=== PATIENT | female | born 1960 | race African-American/Black ===

== ENCOUNTER 2016-12-18 10:41 | Emergency (ER) | payer MEDICARE, MEDICAID ==
[2016-12-18] MEDS ORDERED: Ketorolac INJ* 60 MG/2 ML VIAL IM ONE (12:00)
[2016-12-18] MEDS ORDERED: Ketorolac INJ* 30 MG/ML 1 ML VIAL IV PUSH ONE (12:17)
[2016-12-18 12:44] LABS: Hematocrit 34 % (35-47); Hemoglobin 10.9 g/dl (12.0-16.0); Mean Corpuscular HGB Conc 33 g/dl (31-36); Mean Corpuscular Hemoglobin 21 pg (27-31); Mean Platelet Volume 9 um3 (7.4-10.4); Red Cell Distribution Width 15 % (10.5-15); White Blood Count 9.5 10^3/ul (3.5-10.8)
[2016-12-18 12:49] LABS: Comments Flag Yes
[2016-12-18 12:50] LABS: Mean Corpuscular Volume 64 fL (80-97)
[2016-12-18 13:00] LABS: Albumin 3.8 g/dL (3.2-5.2); BUN/Creatinine Ratio 16.9 (8-20); C Reactive Protein 18.52 mg/L (< 5.00); Calcium 8.9 mg/dL (8.6-10.3); EGFR African American 91.5 (>60); EGFR Non-African American 71.1 (>60); Magnesium 2.1 mg/dL (1.9-2.7); Potassium 3.4 mmol/L (3.5-5.0); Total Bilirubin 0.4 mg/dL (0.2-1.0); Total Protein 6.8 g/dL (6.4-8.9)
--- NOTE | 2016-12-18 13:11 | RAD ---
INDICATION: Right knee pain and swelling. TECHNIQUE: 4 views of the right knee were obtained. FINDINGS: The bones are normal alignment. No acute fracture is seen. There is a moderate joint effusion present. There is moderate to severe osteoarthritic change in the patellofemoral and lateral compartments. In addition, there are several calcific densities which project posterior to the distal femur suspicious for loose bodies. IMPRESSION: 1. JOINT EFFUSION. 2. MODERATE TO SEVERE OSTEOARTHRITIC CHANGE. 3. PROBABLE LOOSE BODIES.
--- NOTE | 2016-12-18 13:13 | RAD ---
INDICATION: Right thigh pain. TECHNIQUE: 2 views of the right femur were obtained. FINDINGS: The bones are in normal alignment. No fracture is seen. There is moderate osteoarthritic change in the hip and moderate to severe osteoarthritic change in the knee. There is also joint effusion within the knee. IMPRESSION: 1. NO EVIDENCE FOR FRACTURE. 2. MODERATE TO SEVERE OSTEOARTHRITIC CHANGE IN THE HIP AND KNEE.
[2016-12-18 14:03] VITALS: BP 96/67
--- NOTE | 2016-12-19 18:47 | ED ---
Lower Extremity - HPI Summary HPI Summary: Pt here w/ Rt knee pain and swelling - states she had a cramp in her thigh about 1 week ago and the pain from her thigh moved into knee and upper calf - getting worse ever since. Denies h/o knee issues. Has tried heat, ice, ibuprofen yesterday w/ minimal relief. Worse w/ full knee extension and flexion past 5 degrees. Denies trauma, injury, fever, chills, redness, streaking, numbness, tingling, weakness. No h/o gout. - History of Current Complaint Chief Complaint: EDExtremityLower Stated Complaint: RT LEG PAIN/1 WEEK Time Seen by Provider: 12/18/16 11:37 Hx Obtained From: Patient Pain Intensity: 11 - Allergies/Home Medications Allergies/Adverse Reactions: Allergies Allergy/AdvReac Type Severity Reaction Status Date / Time Penicillins Allergy Rash Verified 12/18/16 10:50 PMH/Surg Hx/FS Hx/Imm Hx Previously Healthy: Yes Endocrine/Hematology History: Denies: Hx Anticoagulant Therapy, Hx Blood Disorders, Hx Diabetes, Autoimmune Disease Cardiovascular History: Reports: Hx Hypertension Denies: Hx Congestive Heart Failure GI History: Reports: Hx Gall Bladder Disease, Other GI Disorders - cholecystitis , recent diverticulitis History: Denies: Hx Renal Disease Musculoskeletal History: Reports: Hx Arthritis Sensory History: Reports: Hx Contacts or Glasses Opthamlomology History: Reports: Hx Contacts or Glasses Neurological History: Reports: Hx Headaches - Surgical History Surgery Procedure, Year, and Place: CYST FROM LT ARM REMOVED /CYST VAGINAL REGION,Open Cholecystectomy 08/29/14 ([facility]), Fusion L4-5 disc [facility] Hx Anesthesia Reactions: No Infectious Disease History: No Infectious Disease History: Denies: Traveled Outside the [place] in Last 30 Days - Family History Known Family History: Positive: Hypertension - Social History Alcohol Use: None Hx Substance Use: No Substance Use Type: Reports: None Smoking Status (MU): Current Every Day Smoker Type: Cigarettes Amount Used/How Often: 3 cigarettes/day Have You Smoked in the Last Year: Yes Review of Systems Constitutional: Negative Negative: Fever, Chills Negative: Photophobia, Blurred Vision, Diplopia, Drainage, Erythema Negative: Chest Pain Negative: Shortness Of Breath Negative: Vomiting, Nausea Positive: no symptoms reported. Negative: dysuria Musculoskeletal: Other - see HPI Skin: Negative Neurological: Negative Psychological: Normal All Other Systems Reviewed And Are Negative: Yes Physical Exam Triage Information Reviewed: Yes Vital Signs On Initial Exam: Initial Vitals Temp Pulse Resp BP Pulse Ox 98 F 86 16 128/84 100 12/18/16 10:51 12/18/16 10:51 12/18/16 10:51 12/18/16 10:51 12/18/16 10:51 Vital Signs Reviewed: Yes Appearance: Positive: Well-Appearing, No Pain Distress - at rest, Well-Nourished Skin: Positive: Warm, Dry - no erythema, no fever to touch over Rt edematous knee Head/Face: Positive: Normal Head/Face Inspection Eyes: Positive: Normal, EOMI Respiratory/Lung Sounds: Positive: Breath Sounds Present Cardiovascular: Positive: Normal, Pulses are Symmetrical in both Upper and Lower Extremities. Negative: Leg Edema Left, Leg Edema Right - Homans (-) Musculoskeletal: Positive: Pain @ - Rt thigh TTP; Rt knee edematous, TTP, pain w / movement beyond 5-10 degrees of flexion; moving ankle and hip well w/o pain Neurological: Positive: Normal, Sensory/Motor Intact, Alert, Oriented to Person Place, Time, CN Intact II-III Psychiatric: Positive: Normal Diagnostics - Vital Signs Vital Signs Temp Pulse Resp BP Pulse Ox 12/18/16 15:34 98 F 64 18 96/67 12/18/16 14:01 98.0 F 64 15 / 100 12/18/16 11:30 99.3 F 73 15 111/85 100 12/18/16 10:51 98 F 86 16 128/84 100 - Laboratory Lab Results: Lab Results 12/18/16 12/18/16 12/18/16 Range/Units 12:30 12:30 12:30 WBC 9.5 (3.5-10.8) 10^3/ul RBC 5.20 (4.0-5.4) 10^6/ul Hgb 10.9 L (12.0-16.0) g/dl Hct 34 L (35-47) % MCV 64 L (80-97) fL MCH 21 L (27-31) pg MCHC 33 (31-36) g/dl RDW 15 (10.5-15) % Plt Count 268 (150-450) 10^3/ul MPV 9 (7.4-10.4) um3 Neut % (Auto) 62.4 (38-83) % Lymph % (Auto) 29.3 (25-47) % [place] % (Auto) 6.3 (1-9) % Eos % (Auto) 0.7 (0-6) % Baso % (Auto) 1.3 (0-2) % Absolute Neuts (auto) 5.9 (1.5-7.7) 10^3/ul Absolute Lymphs (auto) 2.8 (1.0-4.8) 10^3/ul Absolute Monos (auto) 0.6 (0-0.8) 10^3/ul Absolute Eos (auto) 0.1 (0-0.6) 10^3/ul Absolute Basos (auto) 0.1 (0-0.2) 10^3/ul Absolute Nucleated RBC 0 10^3/ul Nucleated RBC % 0 Sodium 134 (133-145) mmol/L Potassium 3.4 L (3.5-5.0) mmol/L Chloride 99 L (101-111) mmol/L Carbon Dioxide 28 (22-32) mmol/L Anion Gap 7 (2-11) mmol/L BUN 14 (6-24) mg/dL Creatinine 0.83 (0.51-0.95) mg/dL Est GFR ( Amer) 91.5 (>60) Est GFR (Non-Af Amer) 71.1 (>60) BUN/Creatinine Ratio 16.9 (8-20) Glucose 108 H (70-100) mg/dL Lactic Acid 1.3 (0.5-2.0) mmol/L Calcium 8.9 (8.6-10.3) mg/dL Magnesium 2.1 (1.9-2.7) mg/dL Total Bilirubin 0.40 (0.2-1.0) mg/dL AST 11 L (13-39) U/L ALT 6 L (7-52) U/L Alkaline Phosphatase 54 (34-104) U/L C-Reactive Protein 18.52 H (< 5.00) mg/L Total Protein 6.8 (6.4-8.9) g/dL Albumin 3.8 (3.2-5.2) g/dL Globulin 3.0 (2-4) g/dL Albumin/Globulin Ratio 1.3 (1-3) Result Diagrams: 12/18/16 12:30 12/18/16 12:30 Lab Statement: Any lab studies that have been ordered have been reviewed, and results considered in the medical decision making process. Lower Extremity Course/Dx - Diagnoses Provider Diagnoses: Arthritis of right knee Discharge - Discharge Plan Condition: Stable Disposition: HOME Prescriptions: Naproxen Sodium [Naproxen Sodium 500 MG TAB] 500 mg PO BID PRN #20 tab PRN Reason: Pain Patient Education Materials: Osteoarthritis (ED) Referrals: Marii Marino MD [Primary Care Provider] - Additional Instructions: Rest, ice alternating with heat, topical analgesic (ie. biofreeze, bengay, etc) Limited weight bearing - may use cane, crutches or walker to aid in this task Continue NSAID's (aleve 500mg 2 x day with food) alternating with acetaminophen 650mg every 6 hours for pain Follow-up with PCP at the end of the week - call today to schedule appointment *If you develop fever, chills, redness, streaking, swelling into calf, numbness or weakness return to ED
== END 2016-12-18 15:30 | disposition home or self-care (01) ==
LOC: ED 10:41
DX: M17.11 Unilateral primary osteoarthritis, right knee (principal); F17.210 Nicotine dependence, cigarettes, uncomplicated
CPT/HCPCS: 36415; 80053; 83605; 83735; 85025; 86140; 96372; 96374; 99281; J1885

== ENCOUNTER 2016-12-21 17:59 | Emergency (ER) | payer MEDICARE, MEDICAID ==
[2016-12-21 18:46] LABS: Hematocrit 34 % (35-47); Hemoglobin 11.1 g/dl (12.0-16.0); Mean Corpuscular HGB Conc 32 g/dl (31-36); Mean Corpuscular Hemoglobin 22 pg (27-31); Mean Platelet Volume 8 um3 (7.4-10.4); Red Blood Count 5.18 10^6/ul (4.0-5.4); Red Cell Distribution Width 15 % (10.5-15); White Blood Count 8.5 10^3/ul (3.5-10.8)
[2016-12-21 18:48] LABS: Comments Flag Yes; Mean Corpuscular Volume 66 fL (80-97)
[2016-12-21] MEDS ORDERED: Magnesium CITRATE* 300 ML BTL PO ONE (18:54)
[2016-12-21] MEDS ORDERED: NS 0.9% 1000 ML* 1,000 ML IV ONE (18:56)
[2016-12-21] MEDS ORDERED: Ondansetron INJ* 2 MG/ML VIAL IV ONE (18:56)
[2016-12-21 19:01] LABS: ALT 7 U/L (7-52); AST 11 U/L (13-39); Albumin 3.8 g/dL (3.2-5.2); Alkaline Phosphatase 62 U/L (34-104); Anion Gap 7 mmol/L (2-11); BUN/Creatinine Ratio 19.8 (8-20); Blood Urea Nitrogen 20 mg/dL (6-24); C Reactive Protein 41.95 mg/L (< 5.00); CO2 Carbon Dioxide 28 mmol/L (22-32); Calcium 8.9 mg/dL (8.6-10.3); Chloride 99 mmol/L (101-111); EGFR African American 72.9 (>60); EGFR Non-African American 56.7 (>60); Globulin 3.1 g/dL (2-4); Glucose 105 mg/dL (70-100); Lipase < 10 U/L (11.0-82.0); Potassium 3.3 mmol/L (3.5-5.0); Sodium 134 mmol/L (133-145); Total Protein 6.9 g/dL (6.4-8.9)
--- NOTE | 2016-12-21 19:20 | RAD ---
INDICATION: Constipation. COMPARISON: Comparison is made with a prior CT of the abdomen and pelvis from March 03, 2016. TECHNIQUE: Frontal supine films of the abdomen were obtained. FINDINGS: The small bowel and colon appear nondistended. There is a large amount of stool present throughout the colon consistent with the patient's history of constipation. Incidental note is made of moderate bilateral osteoarthritic change in the hips. IMPRESSION: LARGE AMOUNT RETAINED STOOL CONSISTENT WITH THE PATIENT'S HISTORY OF CONSTIPATION.
[2016-12-21 21:18] LABS: Urine Bacteria Absent (Absent); Urine Bilirubin Negative (Negative); Urine Glucose Negative (Negative); Urine Nitrite Negative (Negative)
[2016-12-21] MEDS ORDERED: Ondansetron ODT TAB* 4 MG PO ONE (21:34)
[2016-12-21 22:41] VITALS: BP 106/81
--- NOTE | 2016-12-23 15:33 | ED ---
Vaishnavi Richardson SooYoung, scribed for Juanpablo Reno MD on 12/21/16 at 1816 . Abdominal Pain/Female - HPI Summary HPI Summary: A 56 y/o F presents to ED with c/o constipation onset two weeks ago. Associated sx: nausea, abd pain, bloating, mild lower back pain. Denies vomiting, dysuria, hematuria, frequency. She states that 8 days ago, she gave herself an enema, which only removed a small amount of feces. She did it again 6 days ago, and again only a small of feces was removed. Last enema was at 1700 [employer] [address], but she states nothing came out. She's been taking OTC stool softener with no relief. Her PCP gave her Lactulose, which she took TID, but still hasn't had a BM. Pt was last seen in ED two days ago for RLE pain and given Naproxen. She reports taking a morphine pill ELECT[employer] two days ago. SHx: cholecystectomy about 3 years ago. Pt is quitting smoking, non-drinker, denies pain use. PCP is Dr. Marino. - History of Current Complaint Chief Complaint: EDAbdPain Stated Complaint: CONSTIPATION Time Seen by Provider: 12/21/16 18:14 Hx Obtained From: Patient Onset/Duration: Lasting Weeks - two weeks, Still Present Timing: Constant Severity Initially: Moderate Severity Currently: Severe Pain Intensity: 8 Pain Scale Used: 0-10 Numeric Associated Signs and Symptoms: Positive: Back Pain - mild, Constipation, Nausea , Other: - pos: bloating, abd pain. Negative: Urinary Symptoms, Vomiting Allergies/Adverse Reactions: Allergies Allergy/AdvReac Type Severity Reaction Status Date / Time Penicillins Allergy Rash Verified 12/21/16 18:08 PMH/Surg Hx/FS Hx/Imm Hx Previously Healthy: No Endocrine/Hematology History: Denies: Hx Anticoagulant Therapy, Hx Blood Disorders, Hx Diabetes Cardiovascular History: Reports: Hx Hypertension Denies: Hx Congestive Heart Failure GI History: Reports: Hx Gall Bladder Disease, Other GI Disorders - cholecystitis , recent diverticulitis History: Denies: Hx Renal Disease Musculoskeletal History: Reports: Hx Arthritis Sensory History: Reports: Hx Contacts or Glasses Opthamlomology History: Reports: Hx Contacts or Glasses Neurological History: Reports: Hx Headaches - Surgical History Surgery Procedure, Year, and Place: CYST FROM LT ARM REMOVED /CYST VAGINAL REGION,Open Cholecystectomy 08/29/14 ([facility]), Fusion L4-5 disc [facility], [place] Hx Anesthesia Reactions: No Infectious Disease History: No Infectious Disease History: Denies: Traveled Outside the [place] in Last 30 Days - Family History Known Family History: Positive: Hypertension - Social History Occupation: Unemployed Lives: With Family - ROOMMATE Alcohol Use: None Hx Substance Use: No Substance Use Type: Reports: None Hx Tobacco Use: Yes Smoking Status (MU): Current Every Day Smoker Type: Cigarettes Amount Used/How Often: 3 cigarettes/day Have You Smoked in the Last Year: Yes Review of Systems Negative: Fever, Chills Negative: Erythema Negative: Sore Throat Negative: Chest Pain Negative: Shortness Of Breath, Cough Positive: Abdominal Pain, Nausea, Other - pos: constipation, bloating. Negative : Vomiting Negative: dysuria, frequency, hematuria Positive: Other - pos: mild lower back pain. Negative: Edema Negative: Rash Neurological: Other - neg: dizziness All Other Systems Reviewed And Are Negative: Yes Physical Exam - Summary Physical Exam Summary: Constitutional: Well-developed, Well-nourished, Alert. (-) Distressed Skin: Warm, Dry HENT: Normocephalic; Atraumatic Eyes: Conjunctiva normal Neck: Musculoskeletal ROM normal neck. (-) JVD, (-) Stridor, (-) Tracheal deviation Cardio: Rhythm regular, rate normal, Heart sounds normal; Intact distal pulses; The pedal pulses are 2+ and symmetric. Radial pulses are 2+ and symmetric. (-) Murmur Pulmonary/Chest wall: Effort normal. (-) Respiratory distress, (-) Wheezes, (-) Rales Abd: Soft, (-) Guarding, (-) Rebound; DISTENDED ABD, NON-TENDER Musculoskeletal: (-) Edema Lymph: (-) Cervical adenopathy Neuro: Alert, Oriented x3 Psych: Mood and affect Normal Triage Information Reviewed: Yes Vital Signs On Initial Exam: Initial Vitals Temp Pulse Resp BP Pulse Ox 97.8 F 75 16 105/83 100 12/21/16 18:03 12/21/16 18:03 12/21/16 18:03 12/21/16 18:03 12/21/16 18:03 Vital Signs Reviewed: Yes Diagnostics - Vital Signs Vital Signs Temp Pulse Resp BP Pulse Ox 12/21/16 18:06 97.8 F 72 16 105/83 100 12/21/16 18:03 97.8 F 75 16 105/83 100 - Laboratory Result Diagrams: 12/21/16 18:35 12/21/16 18:35 Lab Statement: Any lab studies that have been ordered have been reviewed, and results considered in the medical decision making process. - Radiology ABD XR Xray Interpretation: Positive (See Comments) - IMPRESSION: LARGE AMOUNT RETAINED STOOL CONSISTENT WITH THE PATIENT'S HISTORY OF CONSTIPATION. Radiology Interpretation Completed By: Radiologist Re-Evaluation - Re-Evaluation 1 Re-Evaluation Time: 21:32 Change: Improved Comment: Discussing results with pt, pt is comfortable. Abdominal Pain Fem Course/Dx - Course Course Of Treatment: Pt is a 56 y/o F presenting with ongoing constipation onset two weeks ago. Associated sx: nausea, abd pain, bloating, mild lower back pain. Denies vomiting, dysuria, hematuria, frequency. 8 days ago, she gave herself an enema to no relief. 6 days ago, and again only a small of feces was removed. Last enema was today at [address]00 [employer] [address] with no results. She's been taking OTC stool softener with no relief. Her PCP gave her Lactulose, which she took TID, but still hasn't had a BM. Pt was last seen in ED two days ago for RLE pain and given Naproxen. She reports taking a morphine pill [employer] two days ago. Pt given Zofran, fluids, Magnesium Citrate in ED. Lab values show elevated CRP at 41.95. UA results show 2+ blood, 2+ RBCs and squamous epithelia present. ABD XR shows "LARGE AMOUNT RETAINED STOOL CONSISTENT WITH THE PATIENT'S HISTORY OF CONSTIPATION.". Upon reeval, pt is comfortable, prefers to continue laxitive at home. Will D/C home with Zofran to f/u with PCP in next two days. Discussed returnted to ED if vomiting or uncontrollable pain occur. Advised sin tea and plenty of hydration. - Diagnoses Provider Diagnoses: Constipation Discharge - Discharge Plan Condition: Stable Disposition: HOME Prescriptions: Ondansetron ODT TAB* [Zofran 4 MG Odt TAB*] 4 mg PO Q8H PRN #12 tab.odt PRN Reason: Nausea/Vomiting Patient Education Materials: Ondansetron (By mouth), Constipation (ED) Referrals: Marii Marino MD [Primary Care Provider] - 2 Days (Follow up with your Primary Care Provider on Friday or Friday.) Additional Instructions: Follow up with your Primary Care Provider on Friday or Friday. Please return to the ED if you experience vomiting or uncontrollable pain. As we discussed, drink sin tea, stay hydrated. The documentation as recorded by the Vaishnavi segura SooYoung accurately reflects the service I personally performed and the decisions made by me, Juanpablo Reno MD.
== END 2016-12-21 22:40 | disposition home or self-care (01) ==
LOC: ED 17:59
DX: K59.00 Constipation, unspecified (principal); M54.9 Dorsalgia, unspecified; R11.0 Nausea; R10.9 Unspecified abdominal pain; F17.210 Nicotine dependence, cigarettes, uncomplicated
CPT/HCPCS: 36415; 74000; 80053; 81003; 81015; 83605; 83690; 85025; 86140; 96374; 99283; A9270-GY; J2405